=== PATIENT | female | born 1990 | race Caucasian/White ===

== ENCOUNTER 2019-04-28 17:43 | Emergency (ER) | payer SELFPAY ==
[~2019-04-28] VITALS: Ht 162.6 cm; Wt 64.2 kg
[~2019-04-28 17:43] MED LIST: BACI28.34 TOP; IBUP-1542 PO
[2019-04-28 17:47] VITALS: Ht 162.6 cm; Wt 64.2 kg
[2019-04-28] MEDS ORDERED: BACITRACIN 0.5%/ZINC 28.35 GM OINT TOP ONE (19:30)
[2019-04-28 19:56] VITALS: BP 106/65; PULSE 72; RESP 18
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
== END 2019-04-28 19:58 | disposition home or self-care (01) ==
LOC: FTE 17:43
DX: S80.212A Abrasion, left knee, initial encounter (principal); S50.312A Abrasion of left elbow, initial encounter; V03.10XA Pedestrian on foot injured in collision with car, pick-up truck or van in traffic accident, initial encounter
CPT/HCPCS: 99282